=== PATIENT | male | born 1985 | race Caucasian/White ===

== ENCOUNTER 2018-03-05 23:03 | Emergency (ER) | payer OTHER ==
[~2018-03-05] VITALS: Ht 190.5 cm; Wt 122.5 kg
[2018-03-05] MEDS ORDERED: TRAMADOL HCL50 MG (23:19)
[2018-03-06] MEDS ORDERED: ULTRAM50 MG PO (01:20)
== END 2018-03-06 02:00 | disposition home or self-care (01) ==
LOC: ER 23:03
DX: S62.661A Nondisplaced fracture of distal phalanx of left index finger, initial encounter for closed fracture (principal); W22.8XXA Striking against or struck by other objects, initial encounter; Y93.89 Activity, other specified; Y92.098 Other place in other non-institutional residence as the place of occurrence of the external cause; Y99.8 Other external cause status

== ENCOUNTER 2018-09-20 08:59 | Outpatient (CLI) | payer OTHER ==
[~2018-09-20 08:59] MED LIST: TRAMADOL HCL50 MG; ULTRAM50 MG PO
== END 2018-09-20 09:01 | disposition home or self-care (01) ==
LOC: SONOGRAMA 08:59
DX: E04.1 Nontoxic single thyroid nodule (principal)